=== PATIENT | female | born 1990 | race Caucasian/White ===

== ENCOUNTER 2017-01-23 08:39 | Emergency (ER) | payer SELFPAY ==
[~2017-01-23] VITALS: Ht 157.5 cm; Wt 53.0 kg
[2017-01-23 08:40] VITALS: BP 114/70
[2017-01-23] MEDS ORDERED: ONDANSETRON 2MG/ML, 2ML IVPush ONE (09:30)
[2017-01-23] MEDS ORDERED: SODIUM CHLORIDE FLUSH 10ML SYR IVF ONE (09:30)
[2017-01-23] MEDS ORDERED: SODIUM CHLORIDE 0.9% 1,000ML IVBOLUS ONE (09:30)
[2017-01-23] MEDS ORDERED: ONDANSETRON 2MG/ML, 2ML ONE (09:42)
[2017-01-23 10:14] LABS: BLOOD UREA NITROGEN 6 mg/dL (7-18)
[2017-01-23] MEDS ORDERED: PREN1TAB60 PO (10:24)
== END 2017-01-23 11:18 | disposition home or self-care (01) ==
LOC: ED 10:43
DX: O26.891 Other specified pregnancy related conditions, first trimester (principal); R10.2 Pelvic and perineal pain; O99.331 Smoking (tobacco) complicating pregnancy, first trimester; Z3A.08 8 weeks gestation of pregnancy
CPT/HCPCS: 36415; 76801; 80048; 81003; 82040; 84702; 85025; 86901; 96361; 96374; 99285; J2405; J7030

== ENCOUNTER 2017-09-02 17:27 | Outpatient (CLI) | payer SELFPAY ==
[~2017-09-02] VITALS: Ht 157.5 cm; Wt 98.2 kg
[~2017-09-02 17:27] MED LIST: PREN1TAB60 PO
[2017-09-02 17:40] VITALS: BP 128/79
== END 2017-09-02 18:19 | disposition home or self-care (01) ==
LOC: LDOP 17:27
PROVIDERS: ATTEND Obstetrics & Gynecology
DX: O26.893 Other specified pregnancy related conditions, third trimester (principal); O99.333 Smoking (tobacco) complicating pregnancy, third trimester; R10.9 Unspecified abdominal pain; F17.200 Nicotine dependence, unspecified, uncomplicated; Z3A.39 39 weeks gestation of pregnancy
CPT/HCPCS: 59025; 99201; G0463